=== PATIENT | male | born 1950 | race Caucasian/White ===

== ENCOUNTER 2022-02-19 09:50 | Inpatient (IN) | payer OTHER, MEDICAID ==
[~2022-02-19] VITALS: Ht 180.3 cm; Wt 122.0 kg
[2022-02-19 09:50] VITALS: BP_SYST 160
[~2022-02-19 09:50] MED LIST: ASPI-1155 PO; GABA-531 PO; GLU500 PO; HYDR-3919 PO; INSU10VI5 SQ; LOPE2CAP PO; LOSA50TA3 PO; NOR10 PO; SERT-436 PO; SPIR25TA6 PO
--- NOTE | 2022-02-19 09:50 | NUR ---
Placed in room 02 . Placed on manager pharmaceutical, blood pressure machine and pulse oximeter. To gown for exam. Side rails up. Report given to LOWELL BUTT.
--- NOTE | 2022-02-19 10:10 | NUR ---
PT FROM [facility] FOR FTT. PT STATES HE ISN'T EATING BECAUSE HE IS JUST TIRED. PT ALERT AND ORIENTED. PT HAS BILATERAL BKA'S.
--- NOTE | 2022-02-19 10:40 | NUR ---
SPOKE WITH PTS AND ALL QUESTIONS ANSWERED, STATES THAT PT HAS GONE FROM A HAPPY ACTIVE MAN TO LETHARGIC AND DEPRESSED AFTER HAVING COVID
--- NOTE | 2022-02-19 10:44 | NUR ---
MRSA AND COVID SWABS OBTAINED AND GIVEN TO PROTECTIVE SERVICES OFFICER
--- NOTE | 2022-02-19 10:45 | NUR ---
DR GALICIA AT BEDSIDE FOR EVALUATION
[2022-02-19] MEDS ORDERED: INSU100V11 SQ (10:54)
[2022-02-19] MEDS ORDERED: OMEP40CA20 PO (10:54)
[2022-02-19] MEDS ORDERED: FLUO60SO2 TP (10:54)
[2022-02-19] MEDS ORDERED: TRIAMCINOLONE CREAM TD (10:54)
[2022-02-19] MEDS ORDERED: SIMV-343 PO (10:54)
[2022-02-19] MEDS ORDERED: GLUC1VIA18 SUBCUT (10:54)
[2022-02-19] MEDS ORDERED: METF-1069 PO (10:54)
[2022-02-19] MEDS ORDERED: CARV12.548 PO (10:54)
[2022-02-19] MEDS ORDERED: SSNOVOLOG SUBCUT (10:54)
[2022-02-19] MEDS ORDERED: CLOP75TA32 PO (10:54)
[2022-02-19] MEDS ORDERED: FLUO15CR49 TP (10:54)
[2022-02-19] MEDS ORDERED: KETO60CR2 TP (10:54)
[2022-02-19] MEDS ORDERED: DOCU-144 PO (10:54)
[2022-02-19] MEDS ORDERED: [UNRECOGNIZED DRUG - CODE] TP (10:54)
[2022-02-19] MEDS ORDERED: LORA10TA7 PO (10:54)
[2022-02-19] MEDS ORDERED: TELM80TA2 PO (10:54)
[2022-02-19] MEDS ORDERED: MELA5TAB12 PO (10:57)
[2022-02-19] MEDS ORDERED: BACL10TA PO (10:57)
[2022-02-19] MEDS ORDERED: HALO50FO3 TD (10:57)
[2022-02-19] MEDS ORDERED: POLY17PO4 PO (10:57)
--- NOTE | 2022-02-19 10:58 | NUR ---
Medication reconciliation completed with information provided by [facility]. Any prior medication reconciliation on file was reviewed and corrected.
[2022-02-19] MEDS ORDERED: NACL 0.9% 1,000 ML IV ONE ×2 (11:00→12:15)
[2022-02-19 11:04] LABS: BASOPHILS % (AUTO) 0.3 % (0.0-2.0); EOSINOPHILS % (AUTO) 0.2 % (0.0-4.0); HEMATOCRIT 45.7 % (36-54); HEMOGLOBIN 14.9 g/dL (14.0-18.0); LYMPHOCYTES # (AUTO) 0.9 K/uL (1.0-5.5); MEAN CORPUSCULAR HEMOGLOBIN 30 pg (27-31); MEAN CORPUSCULAR HGB CONC 33 % (32-36); MEAN CORPUSCULAR VOLUME 91 fL (79.0-98.0); MONOCYTES # (AUTO) 0.7 K/uL (0.0-1.0); MONOCYTES % (AUTO) 9.2 % (1.7-9.3); NEUTROPHILS # (AUTO) 6.2 K/uL (1.8-7.7); NEUTROPHILS % (AUTO) 79.3 % (40.0-70.0); PLATELET COUNT (AUTO) 110 K/uL (130-430); RED BLOOD CELL COUNT(AUTO) 5.03 MIL/uL (4.2-6.2); RED CELL DISTRIBUTION WIDTH 14.2 % (9.0-15.0); WHITE BLOOD COUNT (AUTO) 7.8 K/uL (4.8-10.8)
[2022-02-19 11:18] LABS: ANION GAP 6 (5-15); CHLORIDE 99 mmol/L (98-107); CREATININE 0.97 mg/dL (0.55-1.30); GLUCOSE 111 mg/dL (70-99); UREA NITROGEN, BLOOD 26 mg/dL (8-21)
[2022-02-19 11:25] LABS: ALANINE AMINOTRANSFERASE 46 U/L (12-78); ALBUMIN 3.3 g/dL (3.4-4.8); ASPARTATE AMINOTRANSFERASE 95 U/L (10-37); TOTAL BILIRUBIN 1.1 mg/dL (0.0-1.0)
[2022-02-19 11:47] LABS: CALCIUM 12.5 mg/dL (8.4-11.0); GFR AFRICAN AMERICAN 99 mL/min (>90)
[2022-02-19] MEDS ORDERED: 0.45% NACL 1,000 ML IV SCH (12:30)
[2022-02-19] MEDS ORDERED: LORazepam 2 MG/ML VIAL IVP PRN (12:30)
[2022-02-19] MEDS ORDERED: POTASSIUM CHLORIDE 20 MEQ TAB.PRT.SR PO PRN (12:30)
[2022-02-19] MEDS ORDERED: DEXTROSE 50% JECT 50 ML DISP.SYRIN IVP PRN (12:30)
[2022-02-19] MEDS ORDERED: ONDANSETRON HCL 4 MG/2 ML VIAL IVP PRN (12:30)
[2022-02-19] MEDS ORDERED: MAGNESIUM SULFATE 50 ML IV PRN (12:30)
[2022-02-19] MEDS ORDERED: ACETAMINOPHEN 325 MG TABLET PO PRN (12:30)
[2022-02-19] MEDS ORDERED: MORPHINE 2 MG/ML INJ. SYRINGE IVP PRN ×2 (12:30)
[2022-02-19] MEDS ORDERED: DOCUSATE SODIUM 100 MG CAPSULE PO PRN (12:30)
[2022-02-19] MEDS ORDERED: ZOLPIDEM TARTRATE 5 MG TABLET PO PRN (12:30)
[2022-02-19] MEDS ORDERED: MUPIROCIN 2% TOPICAL OINTMENT 22 GM NS PRN (12:30)
--- NOTE | 2022-02-19 12:33 | NUR ---
Admit bed requested Patient will be admitted to care of [facility]. Admitted to MEDSURG unit. Diagnosis FAILURE TO THRIVE Inpatient (Yes or No) YES Observation (Yes or No) NO Orientation concerns or request close to nursing station (Yes or No) N Covid Status NEG On vent or bipap N Isolation requirements N Needs a sitter N From Home (Yes or if No enter name of facility) [facility] Requires Dialysis (Yes or No) N Med Rec Completed (Yes of No) Y
--- NOTE | 2022-02-19 13:36 | NUR ---
CRITICAL LAB VALUE: 12.5 CALCIUM HIGH LEVEL
--- NOTE | 2022-02-19 13:37 | NUR ---
Spoke to Laly on telephone and gave update. Notified of admission status per hospitalist MD Sorenson with hypercalcemia.
[2022-02-19] MEDS ORDERED: METHYLPREDNISOLONE SOD SUCC 40 MG/ML VIAL IVP ONE (14:45)
--- NOTE | 2022-02-19 15:06 | NUR ---
ADMISSION CONSULT PAGED ORDERED BY DR. MCKEON
--- NOTE | 2022-02-19 16:20 | NUR ---
ACCUCHECK BLOOD SUGAR 115
--- NOTE | 2022-02-19 17:10 | NUR ---
Pt moved via gurney to [address] , resuming ivf 100/hr, vital signs connected bp 172/80 oxygen % on 2 liters via nasal canula. pt has no complaints, cleansed and dried in fresh diaper and sheet linens.
[2022-02-19] MEDS ORDERED: METHYLPREDNISOLONE SOD SUCC 40 MG/ML VIAL ONE (17:43)
[2022-02-19] MEDS: NACL 0.9% 1,000 ML IV SCH (18:15)
--- NOTE | 2022-02-19 19:45 | NUR ---
PT RESTING IN BED, A&O X2. PT DENIES DISCOMFORT AT THIS TIME. VSS. SAFETY PRECAUTIONS IN PLACE.
--- NOTE | 2022-02-19 20:23 | NUR ---
URINE NOT COLLECTED ON DAYSHIFT. PT IS CURRENTLY IN HALLWAY WITH BEDS OPEN TO PROVIDE PRIVACY FOR STRAIGHT CATH.
--- NOTE | 2022-02-19 21:18 | NUR ---
Patient will be admitted to care of . Admitted to MED SURG unit. Will go to room 114B. Belongings list completed. Complete and up to date summary report printed. SBAR report given [place] ETIENNE at bedside with opportunity for questions.
--- NOTE | 2022-02-19 21:30 | NUR ---
Admission Note Received patient from ER with diagnosis of failure to thrive. Initial Plan of Care discussed-patient verbalized understanding. Oriented to room, call light, pain management and safety.
[2022-02-19] MEDS: CARVEDILOL 12.5 MG TABLET (COREG) PO SCH (22:10)
[2022-02-19 23:30] VITALS: BP_SYST 131
[2022-02-20] VITALS: BP_SYST 128
[2022-02-20] MEDS: NACL 0.9% 1,000 ML IV SCH ×3 (00:30→23:02)
[2022-02-20 05:25] LABS: BILIRUBIN,URINE 1+ (NEGATIVE); BLOOD, URINE NEGATIVE (NEGATIVE); CLARITY/URINE CLEAR (CLEAR); COLOR,URINE YELLOW (YELLOW); GLUCOSE,URINE NEGATIVE (NEGATIVE); KETONES,URINE 3+ (NEGATIVE); LEUKOCYTE ESTERASE ,URINE NEGATIVE (NEGATIVE); NITRITE, URINE NEGATIVE (NEGATIVE); PH,URINE 5.5 (5.0-8.0); PROTEIN URINE 2+ (NEGATIVE)
[2022-02-20 05:41] LABS: BACTERIA,URINE None Seen /HPF (None Seen); WBC,URINE 0-3 /HPF (0-3)
[2022-02-20] MEDS: INSULIN LISPRO SLIDING SCALE 100 UNITS/ML, 3 ML VIAL (humaLOG) SUBCUT PRN ×2 (05:58→11:54)
--- NOTE | 2022-02-20 06:44 | NUR ---
CLOSING NOTE PATIENT IN BED, NO S/S OF ACUTE DISTRESS. BREATHING EVEN AND UNLABORED. IVF INFUSING WELL. IV SITE PATENT, NO SIGNS OF INFILTRATION OR INFECTION NOTED. ALL NEEDS MET THROUGHOUT SHIFT. FALL, SAFETY PRECAUTIONS MAINTAINED THROUGHOUT SHIFT. WILL CONTINUE TO MONITOR UNTIL PATIENT CARE IS ENDORSED TO ONCOMING DAYSHIFT NURSE.
[2022-02-20 08:00] VITALS: BP_SYST 167
[2022-02-20] MEDS: CARVEDILOL 12.5 MG TABLET (COREG) PO SCH ×2 (08:52→23:03)
[2022-02-20] MEDS: DOCUSATE SODIUM 100 MG CAPSULE PO SCH (08:53)
[2022-02-20] MEDS: CLOPIDOGREL BISULFATE 75 MG TABLET PO SCH (08:53)
[2022-02-20] MEDS: SIMVASTATIN 20 MG TABLET PO SCH (08:53)
[2022-02-20] MEDS: LOSARTAN POTASSIUM 50 MG TABLET (COZAAR) PO SCH (08:53)
[2022-02-20] MEDS: SERTRALINE HCL 50 MG TABLET PO SCH (08:53)
[2022-02-20] MEDS: ASPIRIN 81 MG TAB.CHEW PO SCH (08:54)
[2022-02-20] MEDS: METHYLPREDNISOLONE SOD SUCC 40 MG/ML VIAL IVP SCH (08:54)
[2022-02-20 09:45] LABS: BASOPHILS % (AUTO) 0.4 % (0.0-2.0); EOSINOPHILS % (AUTO) 0.1 % (0.0-4.0); HEMATOCRIT 45.2 % (36-54); HEMOGLOBIN 14.6 g/dL (14.0-18.0); LYMPHOCYTES # (AUTO) 0.8 K/uL (1.0-5.5); LYMPHOCYTES % (AUTO) 9.9 % (20.5-51.5); MEAN CORPUSCULAR HEMOGLOBIN 30 pg (27-31); MEAN CORPUSCULAR HGB CONC 32 % (32-36); MEAN CORPUSCULAR VOLUME 92 fL (79.0-98.0); MONOCYTES # (AUTO) 0.8 K/uL (0.0-1.0); NEUTROPHILS # (AUTO) 6.1 K/uL (1.8-7.7); NEUTROPHILS % (AUTO) 79.6 % (40.0-70.0); PLATELET COUNT (AUTO) 102 K/uL (130-430); RED BLOOD CELL COUNT(AUTO) 4.91 MIL/uL (4.2-6.2); RED CELL DISTRIBUTION WIDTH 14.4 % (9.0-15.0); WHITE BLOOD COUNT (AUTO) 7.7 K/uL (4.8-10.8)
[2022-02-20 10:09] LABS: ALBUMIN 3.3 g/dL (3.4-4.8); CALCIUM 12.4 mg/dL (8.4-11.0); CREATININE 1.1 mg/dL (0.55-1.30); TOTAL BILIRUBIN 1.2 mg/dL (0.0-1.0)
[2022-02-20 11:31] VITALS: BP_SYST 155
[2022-02-20] MEDS ORDERED: MAGNESIUM SULFATE 3 GM in D5W 100 ML IV ONE (14:30)
[2022-02-20 14:35] LABS: BASOPHILS % (AUTO) 0.2 % (0.0-2.0); HEMATOCRIT 46.9 % (36-54); HEMOGLOBIN 15.2 g/dL (14.0-18.0); LYMPHOCYTES # (AUTO) 0.5 K/uL (1.0-5.5); LYMPHOCYTES % (AUTO) 7.4 % (20.5-51.5); MEAN CORPUSCULAR HEMOGLOBIN 30 pg (27-31); MEAN CORPUSCULAR HGB CONC 33 % (32-36); MEAN CORPUSCULAR VOLUME 92 fL (79.0-98.0); MONOCYTES # (AUTO) 0.4 K/uL (0.0-1.0); MONOCYTES % (AUTO) 5.8 % (1.7-9.3); NEUTROPHILS # (AUTO) 6.2 K/uL (1.8-7.7); NEUTROPHILS % (AUTO) 86.6 % (40.0-70.0); PLATELET COUNT (AUTO) 97 K/uL (130-430); RED BLOOD CELL COUNT(AUTO) 5.11 MIL/uL (4.2-6.2); RED CELL DISTRIBUTION WIDTH 14.2 % (9.0-15.0); WHITE BLOOD COUNT (AUTO) 7.1 K/uL (4.8-10.8)
[2022-02-20 17:00] VITALS: BP_SYST 150
--- NOTE | 2022-02-20 20:00 | NUR ---
Pt ate 0% of meal, Asked pt if he wanted assistance to eat, no response. attempted to wake pt, pt looked at me and I offered a small amount. pt would not eat it. Pt seemed lethargic, Reported to nurse, per nurse pt is lethargic adn will not eat at this time.
[2022-02-20 20:41] VITALS: BP_SYST 166
[2022-02-21 00:50] VITALS: BP_SYST 174
[2022-02-21] MEDS: NACL 0.9% 1,000 ML IV SCH ×2 (06:30→17:58)
--- NOTE | 2022-02-21 06:36 | NUR ---
20 angiocath inserted to rt hand x 1 attempt. IVF infusing. pt remain lethargic. unable to verbalize name. hob in upright position
[2022-02-21 08:00] VITALS: BP_SYST 134
[2022-02-21 08:04] LABS: BASOPHILS % (AUTO) 0.2 % (0.0-2.0); EOSINOPHILS % (AUTO) 0.1 % (0.0-4.0); HEMATOCRIT 44.9 % (36-54); HEMOGLOBIN 14.6 g/dL (14.0-18.0); LYMPHOCYTES # (AUTO) 0.7 K/uL (1.0-5.5); LYMPHOCYTES % (AUTO) 8.6 % (20.5-51.5); MEAN CORPUSCULAR HEMOGLOBIN 30 pg (27-31); MEAN CORPUSCULAR HGB CONC 33 % (32-36); MEAN CORPUSCULAR VOLUME 92 fL (79.0-98.0); MONOCYTES # (AUTO) 0.8 K/uL (0.0-1.0); MONOCYTES % (AUTO) 10.4 % (1.7-9.3); NEUTROPHILS # (AUTO) 6.5 K/uL (1.8-7.7); NEUTROPHILS % (AUTO) 80.7 % (40.0-70.0); PLATELET COUNT (AUTO) 96 K/uL (130-430); RED CELL DISTRIBUTION WIDTH 14.5 % (9.0-15.0); WHITE BLOOD COUNT (AUTO) 8.1 K/uL (4.8-10.8)
[2022-02-21 08:21] LABS: CREATININE 1.14 mg/dL (0.55-1.30)
--- NOTE | 2022-02-21 08:24 | NUR ---
OPENING NOTE Patient in bed resting with eyes closed, no sign of distress or pain. Patients breathing is nonlabored and even, nasal cannula in place on 2L, oxygen saturation 94%. Dr Storey at bedside to examine the patient. Patient continues to be confused, unable to answer questions. All needs met at this time and safety checks made. Comfort measures provided.
[2022-02-21 08:28] LABS: CALCIUM 12.6 mg/dL (8.4-11.0)
[2022-02-21] MEDS: DOCUSATE SODIUM 100 MG CAPSULE PO SCH (09:57)
[2022-02-21] MEDS: SERTRALINE HCL 50 MG TABLET PO SCH (09:57)
[2022-02-21] MEDS: CLOPIDOGREL BISULFATE 75 MG TABLET PO SCH (09:57)
[2022-02-21] MEDS: ASPIRIN 81 MG TAB.CHEW PO SCH (09:57)
[2022-02-21] MEDS: LOSARTAN POTASSIUM 50 MG TABLET (COZAAR) PO SCH (09:58)
[2022-02-21] MEDS: CARVEDILOL 12.5 MG TABLET (COREG) PO SCH ×2 (09:58→21:00)
[2022-02-21] MEDS: METHYLPREDNISOLONE SOD SUCC 40 MG/ML VIAL IVP SCH (10:35)
[2022-02-21] MEDS: FUROSEMIDE 40 MG/4 ML VIAL IVP SCH (10:39)
--- NOTE | 2022-02-21 11:30 | NUR ---
Dietitian recommendations: 1. May benefit from dysphagia evaluation. 2. May benefit from temporary enteral nutrition provision (if consistent with goals of care) until awake and alert enough to tolerate PO intake. Please refer to nutrition assessment for details. PS RD
[2022-02-21 12:01] VITALS: BP_SYST 144
[2022-02-21] MEDS: INSULIN LISPRO SLIDING SCALE 100 UNITS/ML, 3 ML VIAL (humaLOG) SUBCUT PRN ×2 (12:34→22:41)
[2022-02-21 16:30] VITALS: BP_SYST 136
--- NOTE | 2022-02-21 16:47 | NUR ---
BLOOD GLUCOSE 306 MG/ DL
--- NOTE | 2022-02-21 18:23 | NUR ---
SWALLOW EVAL ORDERED Spoke with Dr Storey and notified her of the patient's decreased appetite and pocketing of food. Swallow evaluation ordered.
--- NOTE | 2022-02-21 19:05 | NUR ---
CLOSING NOTE Patient in bed resting with eyes closed, no sign of distress or pain. Patient has been lethargic throughout shift, MD is aware. Nasal cannula in place on 2L, breathing is nonlabored and even. Insulin coverage held as patient unable to safety swallow and eat dinner at this time. IV is patent and running prescribed fluids. All needs met at this time and safety checks made. Will endorse to operations supervisor 2nd shift nurse.
[2022-02-21 20:00] VITALS: BP_SYST 197
--- NOTE | 2022-02-21 20:00 | NUR ---
Pt. in bed, lethargy noted, bp of 197/86. Decrease of ivf to 50ml/hr. Will reassess at later time. No resp. distress noted.
--- NOTE | 2022-02-21 22:00 | NUR ---
Bp of 178/87, call to Dr. Storey, order to given hydralazine 10mg ivp x1 and pt to be put on telemetry. Meds given as rx'd, SR noted on monitor. Will assess closely.
[2022-02-21] MEDS ORDERED: hydrALAZINE HCL 20 MG/ML VIAL ONE (22:11)
[2022-02-21 22:12] VITALS: BP_SYST 178
[2022-02-21] MEDS ORDERED: hydrALAZINE HCL 20 MG/ML VIAL IVP ONE (22:15)
--- NOTE | 2022-02-22 00:30 | NUR ---
Pt. noted to have rhythm change to a-flutter and a-fib, controlled rates. Call to Dr. Storey, consult with Dr. May to be done. Pt. is stable. Still lethargic, will monitor. Addendum: 02/22/22 at 0211 by [facility], LOWELL RN BP of 134/61 Will monitor.
[2022-02-22 01:40] VITALS: BP_SYST 131
--- NOTE | 2022-02-22 03:30 | NUR ---
CONSULTATION PAGED REASON FOR CONSULTATION: Afib/Aflutter WAS CONSULT CALLED? Y PERSON WHO WAS NOTIFIED: Hyacinth CONSULTING PHYSICIAN: Dr. Zhou REQUESTING PHYSICIAN: Dr. Storey
[2022-02-22 05:12] VITALS: BP_SYST 139
--- NOTE | 2022-02-22 05:18 | NUR ---
Swallow Eval Called Left a message to Maile, regarding swallow eval ordered by Dr. Storey.
[2022-02-22] MEDS: INSULIN LISPRO SLIDING SCALE 100 UNITS/ML, 3 ML VIAL (humaLOG) SUBCUT PRN ×3 (06:06→17:05)
--- NOTE | 2022-02-22 06:18 | NUR ---
Pt. needs met this shift, turned q2, amos care given, pt. kept dry and clean. New condom cath put in place and is draining urine into suction container. IVF at 50ml/hr, bp stable. Pt. with aflutter on monitor, consult for cardiology was called to Dr. May office. Accuchecks are high given lispro insulin as ordered. Pt. hob at 30 degrees, [address], pox wnl. call light in reach
[2022-02-22 07:15] LABS: BASOPHILS % (AUTO) 0.1 % (0.0-2.0); HEMATOCRIT 46.3 % (36-54); HEMOGLOBIN 15.2 g/dL (14.0-18.0); LYMPHOCYTES # (AUTO) 0.7 K/uL (1.0-5.5); LYMPHOCYTES % (AUTO) 7.4 % (20.5-51.5); MEAN CORPUSCULAR HEMOGLOBIN 30 pg (27-31); MEAN CORPUSCULAR HGB CONC 33 % (32-36); MEAN CORPUSCULAR VOLUME 91 fL (79.0-98.0); MONOCYTES # (AUTO) 0.8 K/uL (0.0-1.0); MONOCYTES % (AUTO) 8.8 % (1.7-9.3); NEUTROPHILS # (AUTO) 7.6 K/uL (1.8-7.7); NEUTROPHILS % (AUTO) 83.7 % (40.0-70.0); PLATELET COUNT (AUTO) 88 K/uL (130-430); RED BLOOD CELL COUNT(AUTO) 5.07 MIL/uL (4.2-6.2); RED CELL DISTRIBUTION WIDTH 14.4 % (9.0-15.0)
[2022-02-22 07:42] LABS: CALCIUM 12.4 mg/dL (8.4-11.0); CREATININE 1.14 mg/dL (0.55-1.30)
[2022-02-22 08:00] VITALS: BP_SYST 152
--- NOTE | 2022-02-22 08:00 | NUR ---
OPENING NOTE: Pt in bed with eyes closed. No s/s of distress or pain. Breathing is even and unlabored. Pt is on a nasal canula with 2L, O2 stat 94%. Pt. is confused and unable to answer questions. All needs met at this time, safety checks made and call light within reach.
[2022-02-22] MEDS: NACL 0.9% 1,000 ML IV SCH ×2 (08:57→16:13)
[2022-02-22] MEDS: CARVEDILOL 12.5 MG TABLET (COREG) PO SCH (09:00)
[2022-02-22] MEDS: LOSARTAN POTASSIUM 50 MG TABLET (COZAAR) PO SCH (09:00)
[2022-02-22] MEDS: DOCUSATE SODIUM 100 MG CAPSULE PO SCH (09:00)
[2022-02-22] MEDS: CLOPIDOGREL BISULFATE 75 MG TABLET PO SCH (09:00)
[2022-02-22] MEDS: ASPIRIN 81 MG TAB.CHEW PO SCH (09:00)
[2022-02-22] MEDS: METHYLPREDNISOLONE SOD SUCC 40 MG/ML VIAL IVP SCH (09:52)
[2022-02-22] MEDS: FUROSEMIDE 40 MG/4 ML VIAL IVP SCH (09:52)
--- NOTE | 2022-02-22 10:24 | NUR ---
CONSULTATION PAGED/CALLED Reason for Consultation: [] AMS Person Who was Notified: [] DR ARAGON Consulting Physician: [] DR ARAGON Termite Inspector Specialty: [] PULMO Ordering Physician: [] DR TOMPKINS
--- NOTE | 2022-02-22 10:34 | NUR ---
CODE STATUS CHANGED TO MODIFIED Dr Renee spoke with patient's Digna. Patient changed to modified code. Code status form signed by MD and placed in chart.
[2022-02-22 11:28] VITALS: BP_SYST 158
[2022-02-22 11:34] VITALS: BP_SYST 158
--- NOTE | 2022-02-22 14:00 | NUR ---
ROUNDS; PT IN BED WITH EYES CLOSED. FAMILY AT BEDSIDE. UPDATED ON PLAN OF CARE. NO S/S OF DISTRESS OR PAIN. PT IS ON BI-PAP, FIO2 30%. BREATHING IS EVEN AND UNLABORED. HOB IS 30 DEGREES. ALL NEEDS MET AT THIS TIME, SAFETY CHECKS MADE AND CALL LIGHT WITHIN REACH.
[2022-02-22 16:05] VITALS: BP_SYST 150
--- NOTE | 2022-02-22 16:45 | NUR ---
SPOKE WITH PATIENT'S LISS Spoke with patient and updated her on the patient's status and plan of care. All questions answered.
--- NOTE | 2022-02-22 18:41 | NUR ---
CLOSING NOTE: Pt. is in bed with eyes closed. No s/s of distress or pain. Breathing is even and unlabored. Pt. is on Bi-Pap, FIO2 30%. All PO meds held until swallow eval is completed. Pt received coverage for high blood sugar. All needs met at this time, safety checks made and call light within reach.
[2022-02-23] MEDS: INSULIN LISPRO SLIDING SCALE 100 UNITS/ML, 3 ML VIAL (humaLOG) SUBCUT PRN ×4 (00:08→22:21)
[2022-02-23] MEDS: CARVEDILOL 12.5 MG TABLET (COREG) PO SCH ×3 (00:10→20:37)
[2022-02-23] MEDS: NACL 0.9% 1,000 ML IV SCH (00:12)
[2022-02-23 00:59] VITALS: BP_SYST 143
--- NOTE | 2022-02-23 05:50 | NUR ---
Consultation Paged Reason for Consultation: AMS Was consult called: Y Person who was notified: Dr. Olsen text message Consulting Physician: León Kathleen Ordering Physician: Dr. Storey
[2022-02-23 06:50] LABS: BASOPHILS % (AUTO) 0.1 % (0.0-2.0); HEMATOCRIT 49.9 % (36-54); HEMOGLOBIN 16.4 g/dL (14.0-18.0); LYMPHOCYTES % (AUTO) 8.7 % (20.5-51.5); MEAN CORPUSCULAR HEMOGLOBIN 30 pg (27-31); MEAN CORPUSCULAR HGB CONC 33 % (32-36); MEAN CORPUSCULAR VOLUME 92 fL (79.0-98.0); MONOCYTES # (AUTO) 1.3 K/uL (0.0-1.0); MONOCYTES % (AUTO) 12.2 % (1.7-9.3); NEUTROPHILS # (AUTO) 8.8 K/uL (1.8-7.7); PLATELET COUNT (AUTO) 112 K/uL (130-430); RED BLOOD CELL COUNT(AUTO) 5.42 MIL/uL (4.2-6.2); RED CELL DISTRIBUTION WIDTH 14.6 % (9.0-15.0); WHITE BLOOD COUNT (AUTO) 11.1 K/uL (4.8-10.8)
[2022-02-23 07:55] LABS: CREATININE 1.28 mg/dL (0.55-1.30)
[2022-02-23] MEDS: DOCUSATE SODIUM 100 MG CAPSULE PO SCH (09:00)
[2022-02-23] MEDS: SIMVASTATIN 20 MG TABLET PO SCH (09:00)
[2022-02-23] MEDS: ASPIRIN 81 MG TAB.CHEW PO SCH (09:00)
[2022-02-23] MEDS: METHYLPREDNISOLONE SOD SUCC 40 MG/ML VIAL IVP SCH (09:00)
[2022-02-23] MEDS: FUROSEMIDE 40 MG/4 ML VIAL IVP SCH (09:00)
[2022-02-23] MEDS: LOSARTAN POTASSIUM 50 MG TABLET (COZAAR) PO SCH (09:00)
[2022-02-23] MEDS: CLOPIDOGREL BISULFATE 75 MG TABLET PO SCH (09:00)
[2022-02-23] MEDS ORDERED: PAMIDRONATE DISODIUM 90 MG in NS 500 ML IV ONE (10:30)
--- NOTE | 2022-02-23 13:23 | NUR ---
PT WAS SEEN FOR DYSPHAGIA. PT HAD DIFFICULTY TO INITIATE SWALLOW FOR APPLE SAUCE. PT WAS NOT ALERT TO FOLLOW ANY COMMANDS. RECOMMENDATION NOTHING BY MOUTH
--- NOTE | 2022-02-23 14:40 | NUR ---
Telemarketing Agent Dr. Sorenson asked DESK OFFICER to forward a packet to SN[facility]. DESK OFFICER faxed packet.
[2022-02-23 15:37] VITALS: BP_SYST 136
--- NOTE | 2022-02-23 19:15 | NUR ---
PT TO BE TRANSFERRED TO RETIREMENT FACILITY. REPORT GIVEN TO VIOLET THE REGISTERED NURSE. FACILITY STATED THAT THEY DID NOT HAVE A BIPAP AND NEEDED TO ORDER THE MACHINE FOR THE PATIENT. BIPAP SETTINGS FAXED TO THE FACILITY. AMBULANCE SET TO ROLL CALL. FACILITY STATES THAT THEY WILL NOTIFY THE HOSPITAL WHEN THE MACHINE ARRIVES.
--- NOTE | 2022-02-23 20:00 | NUR ---
[facility] CALLED [facility] AND SPOKE WITH LORI AND PLACED THE CHEESE SUPERVISOR ON WILL CALL.
--- NOTE | 2022-02-23 22:14 | NUR ---
DES[facility] G[facility] THE RN FROM [facility] CALLED AND SAID THE BIPAP GOT DELIVERED AND THE PT WILL BE GOING TO [facility]B . CALLED [facility] AND SET UP GRAPE PICKER AND WILL BE 0100 ON 02-24-22 CALLED BERNIE BACK AT [phone] AND SHE SAID THATS FINE TO BRING THE PT. INFORMED RN
[2022-02-24 00:37] VITALS: BP_SYST 113
--- NOTE | 2022-02-24 01:06 | NUR ---
Pt. picked up by [facility] for transport to [facility] in stable condition. Report given w/ all questions answered. Transfer packet given. Care endorsed.
[2022-02-24 01:10] VITALS: BP_SYST 113
[2022-02-24 08:06] LABS: A/G RATIO 0.9 (0.7-1.7); ALBUMIN 3.1 g/dL (2.9-4.4); ALPHA-1-GLOBULIN 0.4 g/dL (0.0-0.4); ALPHA-2-GLOBULIN 0.9 g/dL (0.4-1.0); BETA GLOBULIN 1.1 g/dL (0.7-1.3); GLOBULIN, TOTAL 3.4 g/dL (2.2-3.9); M-SPIKE Not Observed g/dL (Not Observed)
[2022-03-03 11:41] LABS: SPE INTERPRETATION SEE SEPERATE REPORT
== END 2022-02-24 01:06 | DRG 73 ==
LOC: SED 09:50 → SMU 12:32 → STU 02-21 22:09
PROVIDERS: ADMIT General Practice; ATTEND General Practice
PROC: 5A09457 Assistance with Respiratory Ventilation, 24-96 Consecutive Hours, Continuous Positive Airway Pressure (ICD-10-PCS; principal; 2022-02-22)
DX: G90.9 Disorder of the autonomic nervous system, unspecified (principal); G93.41 Metabolic encephalopathy; J96.00 Acute respiratory failure, unspecified whether with hypoxia or hypercapnia; I48.92 Unspecified atrial flutter; I50.30 Unspecified diastolic (congestive) heart failure; E86.9 Volume depletion, unspecified; E11.51 Type 2 diabetes mellitus with diabetic peripheral angiopathy without gangrene; G90.8 Other disorders of autonomic nervous system; I11.0 Hypertensive heart disease with heart failure; E83.52 Hypercalcemia; E66.01 Morbid (severe) obesity due to excess calories; G30.9 Alzheimer's disease, unspecified; F02.80 Dementia in other diseases classified elsewhere, unspecified severity, without behavioral disturbance, psychotic disturbance, mood disturbance, and anxiety; K21.9 Gastro-esophageal reflux disease without esophagitis; F32.A Depression, unspecified; E11.40 Type 2 diabetes mellitus with diabetic neuropathy, unspecified; I25.10 Atherosclerotic heart disease of native coronary artery without angina pectoris; I48.0 Paroxysmal atrial fibrillation; Z20.822 Contact with and (suspected) exposure to COVID-19; E78.5 Hyperlipidemia, unspecified; G47.00 Insomnia, unspecified; Z79.82 Long term (current) use of aspirin; Z79.899 Other long term (current) drug therapy; Z79.4 Long term (current) use of insulin; Z79.02 Long term (current) use of antithrombotics/antiplatelets; Z86.16 Personal history of COVID-19; Z87.01 Personal history of pneumonia (recurrent); Z89.511 Acquired absence of right leg below knee; Z89.512 Acquired absence of left leg below knee; Z74.01 Bed confinement status; Z68.37 Body mass index [BMI] 37.0-37.9, adult; Z91.09 Other allergy status, other than to drugs and biological substances
CPT/HCPCS: 36415; 36600; 70450-TC; 71045; 76376; 80048; 80053; 81000; 82330; 82803-TC; 82962; 83036; 83605; 83735; 83880; 83970; 84100; 84155; 84165; 84443; 84484; 85025; 87040; 87081; 87086; 92610-GN; 93005; 93306; 94660; 94760; 96374; 99285; G0378; J0360; J1030; J1940; J2430; J3475; J7030; J7040; J7060